=== PATIENT | male | born 1990 | race Caucasian/White ===

== ENCOUNTER 2018-09-07 15:51 | Inpatient (IN) | payer OTHER ==
[~2018-09-07] VITALS: Ht 182.9 cm; Wt 86.5 kg
[2018-09-07 16:29] LABS: Hematocrit 44.5 % (41.0-53.0); Hemoglobin 15.6 g/dL (13.5-17.5); Mean Corpuscular Hemoglobin 30.5 pg (28.0-32.0); Mean Corpuscular Hgb Conc. 35.1 g/dL (32.0-36.0); Mean Corpuscular Volume 86.9 fL (80.0-100.0); Platelet Count (auto) 130 10^3/uL (140-450); Red Blood Cells 5.12 10^6/uL (4.5-5.90); Red Cell Distribution Width 12.7 % (11.8-14.3); White Blood Cell 6.5 10^3/uL (4.4-10.8)
[2018-09-07 16:33] LABS: Basophils % (manual) 0 (0.0-2.0); Blast Cells 0; Eosinophils % (manual) 0 (0-7); Metamyelocytes % 0; Myelocytes % 0; Promyelocytes % 0; Reactive Lymphocytes 0
[2018-09-07 16:46] LABS: Albumin 3.9 g/dL (3.4-5.0); Calcium 8.5 mg/dL (8.5-10.1); Potassium 3.4 mmol/L (3.5-5.1)
[2018-09-07 16:49] LABS: BUN/Creatinine Ratio 12.6; Bilirubin, Total 0.5 mg/dL (0.2-1.0); Total Protein 7.9 g/dL (6.4-8.2)
[2018-09-07 17:06] LABS: Urine Bacteria NONE SEEN /hpf (None Seen); Urine Blood TRACE /uL (Negative); Urine Mucus FEW (None Seen); Urine Specific Gravity 1.028 (1.001-1.035); Urine WBC 2 /hpf (0 - 3)
[2018-09-07 17:34] LABS: Band Neutrophils % (manual) 5; Lymphocytes % (manual) 14 (10.0-50.0); Monocytes % (manual) 13 (0-12)
[2018-09-07] MEDS ORDERED: ONDANSETRON HCL 4 MG/2 ML VIAL ONE (18:30)
[2018-09-07] MEDS ORDERED: ONDANSETRON HCL 4 MG/2 ML VIAL IV ONE ×2 (18:45→20:00)
[2018-09-07] MEDS ORDERED: SODIUM CHLORIDE 0.9% 500 ML IV ONE (18:45)
[2018-09-07] MEDS ORDERED: CEFTRIAXONE SODIUM 2 GM in D5W 5% 50 ML IV ONE (20:00)
[2018-09-07] MEDS ORDERED: SODIUM CHLORIDE 0.9% 1,000 ML IV ONE (20:00)
[2018-09-07] MEDS ORDERED: MORPHINE SULFATE 4 MG/ML SYR/VIAL IV ONE (20:00)
[2018-09-07] MEDS ORDERED: ACETAMINOPHEN 500 MG TAB PO ONE (20:00)
[2018-09-07] MEDS ORDERED: cefTRIAXone 1GM/50ML D5W 100 ML IV ONE (20:12)
[2018-09-07 20:23] LABS: CSF White Blood Cells 2 CUMM (0-5)
[2018-09-08] MEDS ORDERED: IBUPROFEN 800 MG TAB PO ONE (02:00)
[2018-09-08] MEDS ORDERED: MORPHINE SULFATE 4 MG/ML SYR/VIAL IV PRN (05:30)
[2018-09-08] MEDS ORDERED: SODIUM CHLORIDE 0.9% 1,000 ML IV SCH ×2 (05:45→06:00)
[2018-09-08] MEDS ORDERED: POTASSIUM CHL 20 Meq TABLET PO ONE (06:00)
[2018-09-08] MEDS: OSELTAMIVIR 75 MG CAP PO SCH ×2 (06:04→21:59)
[2018-09-08 06:54] LABS: BUN/Creatinine Ratio 14.3; Calcium 7.4 mg/dL (8.5-10.1); Potassium 3.7 mmol/L (3.5-5.1)
[2018-09-08 07:12] LABS: Hematocrit 38.8 % (41.0-53.0); Hemoglobin 13.4 g/dL (13.5-17.5); Mean Corpuscular Hemoglobin 30.2 pg (28.0-32.0); Mean Corpuscular Hgb Conc. 34.5 g/dL (32.0-36.0); Mean Corpuscular Volume 87.3 fL (80.0-100.0); Platelet Count (auto) 102 10^3/uL (140-450); Red Blood Cells 4.44 10^6/uL (4.5-5.90); Red Cell Distribution Width 12.7 % (11.8-14.3); White Blood Cell 3.9 10^3/uL (4.4-10.8)
[2018-09-08 07:21] LABS: Basophils % (manual) 0 (0.0-2.0); Blast Cells 0; Eosinophils % (manual) 0 (0-7); Metamyelocytes % 0; Myelocytes % 0; Promyelocytes % 0; Reactive Lymphocytes 0
[2018-09-08 08:45] LABS: Band Neutrophils % (manual) 5; Lymphocytes % (manual) 25 (10.0-50.0); Monocytes % (manual) 12 (0-12)
--- NOTE | 2018-09-08 09:30 | NUR ---
MS admit from ER [facility] admitted to tele/MS after SBAR received. Patient oriented to Isela Velazquez, primary RN, room 283. A/O x4 mild shivering, no SOB or distress associated. Droplet precautions initiated and unit policies regarding patient care and visiting hours were explained, verbalized understanding. Patient weighed by bed scale and encouraged to call if they need something. All questions and concerns addressed, patient verbalized understanding.
[2018-09-08] MEDS: ACETAMINOPHEN 325 MG TAB PO PRN ×2 (10:06→21:59)
[2018-09-08] MEDS: ONDANSETRON HCL 4 MG/2 ML VIAL IV PRN (10:07)
--- NOTE | 2018-09-08 10:12 | NUR ---
TEMPERATURE Elevated temperature of 102F assessed, provided patient with prescribed antipyretic and initiated cooling measures. No distress or SOB at this time. Will continue to monitor q1hr and prn.
[2018-09-08 10:51] VITALS: BP 101/56
[2018-09-08] MEDS: SODIUM CHLORIDE 0.9% 1,000 ML IV SCH ×2 (12:42→19:01)
[2018-09-08] MEDS ORDERED: OSEL75CA11 PO (12:43)
[2018-09-08] MEDS ORDERED: IBUP800T24 PO (12:43)
[2018-09-08] MEDS ORDERED: PRO625LQ PO (12:43)
[2018-09-08] MEDS ORDERED: CETI10CA PO (12:43)
[2018-09-08] MEDS ORDERED: LEVO750T2 PO (12:43)
[2018-09-08 13:00] VITALS: BP 104/60
[2018-09-08] MEDS: HYDROcodone-ACET 5/325MG TAB PO PRN (15:20)
[2018-09-08 17:00] VITALS: BP 111/57
--- NOTE | 2018-09-08 19:55 | NUR ---
Opening Shift Note Assumed care of patient, awake and alert. Complaints of 9/10 generalized pain and headache. States [place] wasn't as effective as morphine given in ED. Morphine administered as per order. Patient agreed to alternate morphine and [place] for now. Instructed on POC and to call for assist PRN, will continue to monitor for changes Q1hr and PRN.
--- NOTE | 2018-09-08 20:00 | NUR ---
IV insertion IV access obtained, via clean sterile technique by inserting 22 gauge catheter at RIGHT HAND after 1 attempt(s). IV secured properly. No trauma to site. Patient tolerated well.
--- NOTE | 2018-09-08 22:01 | NUR ---
TEMP 103F TYLENOL ADMINISTERED. PATIENT SPONGED DOWN W/COLD WASH CLOTHS AND ICE PACKS APPLIED IN THE AXILLARY. WILL MONITOR.
[2018-09-08 22:16] VITALS: BP 112/55
[2018-09-09] MEDS: SODIUM CHLORIDE 0.9% 1,000 ML IV SCH ×4 (00:24→21:13)
[2018-09-09] MEDS: ACETAMINOPHEN 325 MG TAB PO PRN ×3 (04:00→16:51)
--- NOTE | 2018-09-09 04:18 | NUR ---
TEMP 102.7F TEMP DID COME DOWN TO 100.3 BUT EDGARD AGAIN 102.7F. TYLENOL ADMINISTERED; RUBBED DOWN W/COLD WASH CLOTHS, THEN APPLIED TO HEAD AND NECK; AND ICE PACKS APPLIED TO AXILLARIES AND BACK OF NECK. WILL MONITOR.
[2018-09-09] MEDS: ONDANSETRON HCL 4 MG/2 ML VIAL IV PRN (04:32)
--- NOTE | 2018-09-09 04:38 | NUR ---
ZOFRAN ADMINISTERED FOR NAUSEA.
[2018-09-09 05:00] VITALS: BP 110/57
--- NOTE | 2018-09-09 07:05 | NUR ---
SHIFT END PATIENT RESTING IN BED COMFORTABLY. TEMP NOW 98.1. HAND OFF TO DAY RN.
--- NOTE | 2018-09-09 08:00 | NUR ---
Opening Shift Note Assumed care of patient, awake, alert and oriented X4. No S/S of distress/SOB or pain. IV to right hand, 22 gauge, patent and infusing 00.9% NS @ 150 ml/hr. Patient remains in droplet isolation for positive Influenza A. Instructed on POC and to call for assist PRN, verbalized understanding. Bed locked, in lowest position, call light within reach, will continue to monitor for changes Q1hr and PRN.
[2018-09-09] MEDS: OSELTAMIVIR 75 MG CAP PO SCH ×2 (09:46→21:13)
[2018-09-09] MEDS: HYDROcodone-ACET 5/325MG TAB PO PRN ×2 (09:47→18:50)
--- NOTE | 2018-09-09 12:15 | NUR ---
ROUNDS Dr Granados at bedside for rounds, new orders received and followed through. Patient updated on plan of care, verbalized understanding.
[2018-09-09] MEDS: KETOROLAC TROMETH 30 MG/ML 1ML VIAL IV PRN ×2 (12:57→18:50)
[2018-09-09 13:00] VITALS: BP 87/43
[2018-09-09 18:36] VITALS: BP 117/56
--- NOTE | 2018-09-09 19:14 | NUR ---
Care endorsed to JET Jorgensen, night nurse.
[2018-09-09 22:00] VITALS: BP 107/58
[2018-09-10] MEDS: HYDROcodone-ACET 5/325MG TAB PO PRN ×2 (00:59→08:20)
[2018-09-10] MEDS: SODIUM CHLORIDE 0.9% 1,000 ML IV SCH ×4 (03:00→23:45)
[2018-09-10 05:23] VITALS: BP 121/69
[2018-09-10 06:35] LABS: Basophils # (auto) 0 uL; Basophils % (auto) 0.3 % (0.0-2.0); Eosinophils # (auto) 0 uL; Lymphocytes # (auto) 1.1 uL; Lymphocytes % (auto) 17.1 % (10.0-50.0); Mean Corpuscular Hemoglobin 30.3 pg (28.0-32.0); Mean Corpuscular Hgb Conc. 35.2 g/dL (32.0-36.0); Mean Corpuscular Volume 86.2 fL (80.0-100.0); Monocytes # (auto) 0.7 uL; Monocytes % (auto) 10.9 % (0.0-12.0); Neutrophils # (auto) 4.4 uL; Neutrophils % (auto) 71.7 % (37.0-80.0); Platelet Count (auto) 87 10^3/uL (140-450); Red Blood Cells 4.29 10^6/uL (4.5-5.90); Red Cell Distribution Width 12.7 % (11.8-14.3); White Blood Cell 6.1 10^3/uL (4.4-10.8)
[2018-09-10] MEDS: ACETAMINOPHEN 325 MG TAB PO PRN ×2 (06:58→15:39)
--- NOTE | 2018-09-10 07:00 | NUR ---
TYLENOL ADMINISTERED FOR 103.2F TEMP TEMPERATURE SPIKED TO 103F X2 OVERNIGHT AND ABLE TO SUCCESSFULLY REDUCE IT TO 100 W/COOLING MEASURES INCLUDING SHOWER X2 AND ICE PACKS TO BL AXILLARIES, NECK AND COLD WASH CLOTHS TO HEAD. PATIENT IN NO DISTRESS BUT MILD TO MODERATE PAIN. TOLERATING INCREASED ACTIVITY LEVELS WELL. OVERALL DISPOSITION IS IMPROVED. CARE ENDORSED TO DAY JET MCNEAL.
[2018-09-10 07:01] LABS: Albumin 2.6 g/dL (3.4-5.0); Calcium 7.1 mg/dL (8.5-10.1); Magnesium 1.9 mg/dL (1.6-2.6); Potassium 3.2 mmol/L (3.5-5.1)
[2018-09-10 07:03] LABS: BUN/Creatinine Ratio 9.3
[2018-09-10 07:06] LABS: Total Protein 6.1 g/dL (6.4-8.2)
[2018-09-10 07:26] LABS: Bilirubin, Total 0.5 mg/dL (0.2-1.0)
--- NOTE | 2018-09-10 08:00 | NUR ---
Opening Shift Note Assumed care of patient, awake, alert and oriented X4. No S/S of distress/SOB, complains of pain to head, 6/10, Domínguez Dodson scale. Temp 103.2 F orally, administered Coats and Toradol as ordered. Cooling measures remain in place. IV to right hand, 22 gauge, patent and infusing 0.9% NS @ 150 ml/hr. Instructed on POC and to call for assist PRN, verbalized understanding. Patient remains in droplet isolation for positive Influenza A. Bed locked, in lowest position, call light within reach, will continue to monitor for changes Q1hr and PRN.
[2018-09-10 08:09] VITALS: BP 133/67
[2018-09-10] MEDS: KETOROLAC TROMETH 30 MG/ML 1ML VIAL IV PRN ×3 (08:20→21:45)
[2018-09-10] MEDS: PANTOPRAZOLE 40 MG TAB PO SCH (09:55)
[2018-09-10] MEDS: OSELTAMIVIR 75 MG CAP PO SCH ×2 (09:55→21:45)
[2018-09-10 11:50] VITALS: BP 115/53
--- NOTE | 2018-09-10 13:40 | NUR ---
ROUNDS Dr Barnes at bedside for rounds, new orders received and followed through. Patient updated on plan of care, verbalized understanding. Patient remains in droplet isolation for Influenza B.
[2018-09-10] MEDS ORDERED: PIPERACILLIN-TAZOB 3.375GM 100 ML IV ONE (13:45)
[2018-09-10] MEDS ORDERED: POTASSIUM CHL 20 Meq TABLET PO ONE (13:45)
[2018-09-10] MEDS ORDERED: MAGNESIUM SULFATE 1GM/100ML 100 ML IV ONE (13:45)
[2018-09-10] MEDS ORDERED: HEPARIN SODIUM (PORCINE) 5000 UNITS/ML 1ML VIAL SC SCH (14:00)
[2018-09-10 16:29] LABS: Urine Bacteria NONE SEEN /hpf (None Seen); Urine Blood 1+ /uL (Negative); Urine Mucus FEW (None Seen); Urine Specific Gravity 1.014 (1.001-1.035); Urine WBC 8 /hpf (0 - 3)
[2018-09-10 16:43] LABS: Alcohol, Urine < 3.0 mg/dL (0-5); Amphetamine Screen, Urine NEGATIVE (NEGATIVE); Barbiturate Scree,Urine NEGATIVE (NEGATIVE); Benzodiazephine Screen, Urine NEGATIVE (NEGATIVE); Cannabinoid Screen, Urine NEGATIVE (NEGATIVE); Cocaine Screen, Urine NEGATIVE (NEGATIVE); Opiate Scree,Urine POSITIVE (NEGATIVE); Phencyclidine Screen, Urine NEGATIVE (NEGATIVE)
[2018-09-10 16:58] VITALS: BP 126/62
--- NOTE | 2018-09-10 19:37 | NUR ---
Care endorsed to JET Art, night nurse.
[2018-09-10 22:00] VITALS: BP 120/54
[2018-09-11] MEDS: ACETAMINOPHEN 325 MG TAB PO PRN ×3 (01:47→16:20)
[2018-09-11 04:57] LABS: Basophils # (auto) 0 uL; Basophils % (auto) 0.3 % (0.0-2.0); Eosinophils # (auto) 0 uL; Hematocrit 34.7 % (41.0-53.0); Hemoglobin 11.8 g/dL (13.5-17.5); Lymphocytes % (auto) 18.6 % (10.0-50.0); Mean Corpuscular Hemoglobin 29.9 pg (28.0-32.0); Mean Corpuscular Hgb Conc. 33.9 g/dL (32.0-36.0); Mean Corpuscular Volume 88.1 fL (80.0-100.0); Monocytes # (auto) 0.7 uL; Monocytes % (auto) 11.8 % (0.0-12.0); Neutrophils # (auto) 3.9 uL; Neutrophils % (auto) 69.3 % (37.0-80.0); Nucleated Red Blood Cells % 0.1 %; Platelet Count (auto) 86 10^3/uL (140-450); Red Blood Cells 3.94 10^6/uL (4.5-5.90); Red Cell Distribution Width 13.1 % (11.8-14.3); White Blood Cell 5.7 10^3/uL (4.4-10.8)
[2018-09-11 05:00] VITALS: BP 102/63
[2018-09-11 05:13] LABS: BUN/Creatinine Ratio 10.8; Calcium 7.2 mg/dL (8.5-10.1); Magnesium 2.3 mg/dL (1.6-2.6); Potassium 3.9 mmol/L (3.5-5.1)
[2018-09-11] MEDS: KETOROLAC TROMETH 30 MG/ML 1ML VIAL IV PRN ×2 (06:09→22:04)
[2018-09-11] MEDS: SODIUM CHLORIDE 0.9% 1,000 ML IV SCH ×2 (06:09→23:59)
[2018-09-11] MEDS: PIPERACILLIN-TAZOB 3.375GM 100 ML IV SCH ×4 (06:20→23:58)
[2018-09-11 08:00] VITALS: BP 111/64
--- NOTE | 2018-09-11 08:00 | NUR ---
OPENING SHIFT NOTE: Received report from NOC RNKaelyn. Assumed care of patient. Patient sitting up in bed eating breakfast and denies pain. Bed in lowest position, rails x2 up and call light within reach. Patient voicing concerns about staff not answering call light in a timely manner, instructed patient to call this RN's portable phone at anytime if call light isn't being answered fast enough. Updated on plan of care. Will continue to monitor.
[2018-09-11] MEDS: OSELTAMIVIR 75 MG CAP PO SCH ×2 (10:24→22:02)
[2018-09-11] MEDS: PANTOPRAZOLE 40 MG TAB PO SCH (10:24)
--- NOTE | 2018-09-11 10:25 | NUR ---
TEMP/FEVER: Patient c/o chills and is visibly shaking. Axillary temperature taken 101.9. Medicated with Tylenol as ordered. Dr Barnes made aware.
--- NOTE | 2018-09-11 10:25 | NUR ---
MD: Dr Barnes at bedside. Orders given.
[2018-09-11] MEDS ORDERED: guaiFENesin-DM 100/10mg/5ml SYR PO PRN (10:45)
[2018-09-11 11:07] LABS: Cryptococcus Antigen CSF Negative (Negative)
[2018-09-11] MEDS ORDERED: VANCOMYCIN PER PHARMACY 0 MG IV SCH (11:15)
[2018-09-11] MEDS ORDERED: ALBUTEROL SULF 2.5 MG/0.5ML(0.5%) NEB SOLN NEB PRN (11:15)
[2018-09-11] MEDS ORDERED: MORPHINE SULFATE 4 MG/ML SYR/VIAL IV PRN (11:15)
[2018-09-11] MEDS: ONDANSETRON HCL 4 MG/2 ML VIAL IV PRN (11:26)
[2018-09-11] MEDS: IPRATROPIUM BROM 0.5 MG/2.5ML INH SOL NEB SCH ×3 (11:47→18:44)
[2018-09-11] MEDS: ALBUTEROL SULF 2.5 MG/0.5ML(0.5%) NEB SOLN NEB SCH ×3 (11:47→18:44)
[2018-09-11 12:00] VITALS: BP 112/62
--- NOTE | 2018-09-11 13:17 | NUR ---
NUTRITION ASSESSMENT NOTES Please refer to link notes of nutrition screen form filed under the intervention section of the plan of care for further details. Est. Needs: 1850 kcal to 2300 kcal (20-25 kcal/kgBW), 76 gms to 92 gms pro (0.8-1.0 gms/kgBW). Will continue to monitor pertinent labs and reassess nutrient needs prn Thank you. Addendum: 09/11/18 at [address] Amended: Links added.
[2018-09-11] MEDS: VANCOMYCIN 1,250 MG in D5W 5% 250 ML IV SCH ×2 (15:30→22:02)
[2018-09-11 17:00] VITALS: BP 117/67
[2018-09-11 17:42] VITALS: BP 117/67
--- NOTE | 2018-09-11 19:15 | NUR ---
Opening Shift Note Assumed care of patient, awake and alert. No S/S of distress/SOB or pain. Family at bedside. Instructed on POC and to call for assist PRN, will continue to monitor for changes Q1hr and PRN.
--- NOTE | 2018-09-11 19:39 | NUR ---
CLOSING SHIFT NOTE: Report given to NOC Kaelyn CHAUDHARY. Mother at bedside. Endorsed care of patient.
[2018-09-11 22:00] VITALS: BP 106/61
[2018-09-11] MEDS: FLUTICASONE PROP NASAL SPR 0.05 % (50MCG) 16GM EACHNOSTRI SCH (22:04)
[2018-09-12] MEDS: ACETAMINOPHEN 325 MG TAB PO PRN ×3 (00:09→18:41)
[2018-09-12] MEDS: KETOROLAC TROMETH 30 MG/ML 1ML VIAL IV PRN ×3 (04:25→21:55)
[2018-09-12 04:55] VITALS: BP 118/64
[2018-09-12] MEDS: PIPERACILLIN-TAZOB 3.375GM 100 ML IV SCH ×2 (05:35→12:00)
[2018-09-12] MEDS: SODIUM CHLORIDE 0.9% 1,000 ML IV SCH ×2 (05:35→15:53)
[2018-09-12] MEDS: VANCOMYCIN 1,250 MG in D5W 5% 250 ML IV SCH (06:34)
[2018-09-12] MEDS: ALBUTEROL SULF 2.5 MG/0.5ML(0.5%) NEB SOLN NEB SCH ×5 (06:53→21:26)
[2018-09-12] MEDS: IPRATROPIUM BROM 0.5 MG/2.5ML INH SOL NEB SCH ×5 (06:53→21:26)
--- NOTE | 2018-09-12 07:00 | NUR ---
CARE ENDORSED TO SARANYA
[2018-09-12 09:15] VITALS: BP 122/73
[2018-09-12] MEDS: ONDANSETRON HCL 4 MG/2 ML VIAL IV PRN ×3 (09:51→18:41)
[2018-09-12] MEDS: OSELTAMIVIR 75 MG CAP PO SCH ×2 (09:52→21:47)
[2018-09-12] MEDS: PANTOPRAZOLE 40 MG TAB PO SCH (09:52)
[2018-09-12] MEDS: FLUTICASONE PROP NASAL SPR 0.05 % (50MCG) 16GM EACHNOSTRI SCH ×2 (09:53→21:47)
[2018-09-12 11:21] LABS: Basophils # (auto) 0 uL; Basophils % (auto) 0.3 % (0.0-2.0); Eosinophils # (auto) 0 uL; Hematocrit 36.5 % (41.0-53.0); Hemoglobin 12.6 g/dL (13.5-17.5); Lymphocytes # (auto) 0.5 uL; Lymphocytes % (auto) 17.1 % (10.0-50.0); Mean Corpuscular Hemoglobin 30.1 pg (28.0-32.0); Mean Corpuscular Hgb Conc. 34.5 g/dL (32.0-36.0); Mean Corpuscular Volume 87.4 fL (80.0-100.0); Monocytes # (auto) 0.5 uL; Monocytes % (auto) 16.9 % (0.0-12.0); Neutrophils # (auto) 1.9 uL; Neutrophils % (auto) 65.7 % (37.0-80.0); Nucleated Red Blood Cells % 0.3 %; Platelet Count (auto) 152 10^3/uL (140-450); Red Blood Cells 4.17 10^6/uL (4.5-5.90); Red Cell Distribution Width 13.4 % (11.8-14.3); White Blood Cell 2.8 10^3/uL (4.4-10.8)
[2018-09-12 13:02] VITALS: BP 107/41
--- NOTE | 2018-09-12 14:56 | NUR ---
XRAY Patient going off unit for xray via wheelchair.
[2018-09-12] MEDS: AZITHROMYCIN 500MG/ 250ML 250 ML IV SCH (15:30)
[2018-09-12] MEDS: CEFTRIAXONE SODIUM 2 GM in D5W 5% 50 ML IV SCH (15:52)
[2018-09-12 17:00] VITALS: BP 108/61
--- NOTE | 2018-09-12 19:20 | NUR ---
OPENING SHIFT NOTE ASSUMED CARE OF PATIENT FROM DAY SHIFT RN SARANYA. PATIENT IS AWAKE, ALERT, AND SITTING UP IN BED RELAXED WITH EVEN AND UNLABORED RESPIRATIONS. FAMILY IS AT BEDSIDE. BED IS LOW, LOCKED, CALL LIGHT IN REACH, SIDE RAILS UP X2 AND NONSKID SOCKS ON. INSTRUCTED ON POC AND TO CALL FOR ASSIST PRN. WILL CONTINUE TO MONITOR.
--- NOTE | 2018-09-12 20:25 | NUR ---
INCENTIVE SPIROMETER I.S. GIVEN TO PATIENT AND PATIENT EDUCATED ON USE AND PURPOSE. PATIENT RETURNED DEMONSTRATION. WILL CONTINUE TO MONITOR
[2018-09-12 21:00] VITALS: BP 117/63
[2018-09-13] MEDS: ACETAMINOPHEN 325 MG TAB PO PRN ×3 (01:49→20:18)
[2018-09-13] MEDS: ONDANSETRON HCL 4 MG/2 ML VIAL IV PRN ×4 (01:49→20:18)
[2018-09-13] MEDS: SODIUM CHLORIDE 0.9% 1,000 ML IV SCH ×3 (01:50→22:06)
--- NOTE | 2018-09-13 02:41 | NUR ---
NOSE BLEED PATIENT HAD A NOSE BLEED THAT HALF SATURATED A WASH CLOTH. PATIENT STATED THAT HE HAS HAD THEM SINCE HE WAS A CHILD. ICE AND EDUCATION GIVEN. OXYGEN IS HUMIDIFIED. PATIENT IS RECEIVING NASAL SUDAFED. WILL CONTINUE TO MONITOR.
[2018-09-13 05:00] VITALS: BP 131/78
[2018-09-13] MEDS: ALBUTEROL SULF 2.5 MG/0.5ML(0.5%) NEB SOLN NEB SCH ×4 (06:00→19:08)
[2018-09-13] MEDS: IPRATROPIUM BROM 0.5 MG/2.5ML INH SOL NEB SCH ×4 (06:00→19:08)
--- NOTE | 2018-09-13 06:30 | NUR ---
PT REFUSED 0600 SCHEDULED BREATHING TX. PT IS ON ROOM AIR, SPO2 91%, HR 73, RR 18. PT HAS NOSE BLEED AND IS ALSO VOMITING. NO S/S OF RESPIRATORY DISTRESS. PT AWARE TO HAVE RT PAGED IF SOB OCCURS OR HE CHANGES HIS MIND. WILL CONTINUE TO MONITOR.
--- NOTE | 2018-09-13 07:28 | NUR ---
CLOSING SHIFT NOTE TRANSFERRED CARE TO DAY SHIFT RN. PATIENT IS AWAKE, ALERT, AND SITTING UP IN BED RELAXED WITH EVEN AND UNLABORED RESPIRATIONS. BED IS LOW, LOCKED, CALL LIGHT IN REACH, SIDE RAILS UP X2.
[2018-09-13 08:38] VITALS: BP 143/77
[2018-09-13] MEDS: KETOROLAC TROMETH 30 MG/ML 1ML VIAL IV PRN (08:41)
[2018-09-13] MEDS: CEFTRIAXONE SODIUM 2 GM in D5W 5% 50 ML IV SCH (09:53)
[2018-09-13] MEDS: PANTOPRAZOLE 40 MG TAB PO SCH (09:54)
[2018-09-13] MEDS: FLUTICASONE PROP NASAL SPR 0.05 % (50MCG) 16GM EACHNOSTRI SCH ×2 (09:54→22:06)
[2018-09-13] MEDS: AZITHROMYCIN 500MG/ 250ML 250 ML IV SCH (11:08)
[2018-09-13 13:00] VITALS: BP 122/66
--- NOTE | 2018-09-13 13:13 | NUR ---
IV removal IV DC'd with clean sterile technique, catheter fully intact. Pressure dressing applied to site. Patient tolerated well. NOTE: Patient complains of pain to IV site. Site appears moist.
--- NOTE | 2018-09-13 13:15 | NUR ---
IV attempt Unable to get IV insertion after two attempts. paper final inspector notified and will attempt to insert IV.
--- NOTE | 2018-09-13 14:49 | NUR ---
IV insertion IV access obtained, via clean sterile technique by inserting 22 gauge catheter at R FA after 1 attempt. IV secured properly. No trauma to site. Patient tolerated well.
--- NOTE | 2018-09-13 15:00 | NUR ---
NAUSEA Patient having nausea and vomiting, asking for medications. Dr Fermin at nursing station made aware of patient continuos n/v episodes. MD states he will see patient.
--- NOTE | 2018-09-13 15:25 | NUR ---
ROUNDING Dr Fermin rounding on patient. Patients mom at bedside. MD will order GI consult.
[2018-09-13 17:11] VITALS: BP 129/71
--- NOTE | 2018-09-13 19:15 | NUR ---
OPENING SHIFT NOTE ASSUMED CARE OF PATIENT FROM DAY SHIFT RN SARANYA. PATIENT IS AWAKE, ALERT, AND SITTING UP IN BED RELAXED WITH EVEN AND UNLABORED RESPIRATIONS. MOM IS AT BEDSIDE. BED IS LOW, LOCKED, CALL LIGHT IN REACH, SIDE RAILS UP X2 AND NONSKID SOCKS ON. INSTRUCTED ON POC AND TO CALL FOR ASSIST PRN. WILL CONTINUE TO MONITOR.
[2018-09-13] MEDS ORDERED: LORazepam 0.5 MG TAB PO PRN (19:45)
--- NOTE | 2018-09-13 20:05 | NUR ---
N/V AND FEVER PATIENT SHAKY WITH N/V. TEMP 103.0. TYLENOL AND ZOFRAN GIVEN. COOLING MEASURES IMPLEMENTED. DINNER UNEATEN AT BEDSIDE. WILL CONTINUE TO MONITOR.
[2018-09-13 22:00] VITALS: BP 128/69
[2018-09-13] MEDS: PANTOPRAZOLE 40 MG/10 ML VIAL IV SCH (22:05)
[2018-09-14] MEDS: ONDANSETRON HCL 4 MG/2 ML VIAL IV PRN ×3 (00:35→11:21)
[2018-09-14] MEDS: ACETAMINOPHEN 325 MG TAB PO PRN ×3 (04:45→22:00)
[2018-09-14 05:00] VITALS: BP 132/75
[2018-09-14] MEDS: ALBUTEROL SULF 2.5 MG/0.5ML(0.5%) NEB SOLN NEB SCH ×4 (06:18→18:59)
[2018-09-14] MEDS: IPRATROPIUM BROM 0.5 MG/2.5ML INH SOL NEB SCH ×4 (06:18→18:58)
--- NOTE | 2018-09-14 07:45 | NUR ---
Opening Shift Note Assumed care of patient, awake and alert. No S/S of distress/SOB. Patient continues to have nausea and pain at an acceptable level at this time. Instructed on POC and to call for assist PRN, will continue to monitor for changes Q1hr and PRN.
[2018-09-14 09:00] VITALS: BP 139/77
[2018-09-14] MEDS: PANTOPRAZOLE 40 MG/10 ML VIAL IV SCH ×2 (10:43→22:00)
[2018-09-14] MEDS: FLUTICASONE PROP NASAL SPR 0.05 % (50MCG) 16GM EACHNOSTRI SCH ×2 (10:43→22:00)
[2018-09-14] MEDS: CEFTRIAXONE SODIUM 2 GM in D5W 5% 50 ML IV SCH (10:43)
[2018-09-14] MEDS: SODIUM CHLORIDE 0.9% 1,000 ML IV SCH ×2 (10:43→18:40)
--- NOTE | 2018-09-14 11:25 | NUR ---
MD BILL Barnes roundyamel with mom and RN at bedside updated on all tests and lab results. Discussed symptoms. Stool cultures will be ordered and abd CT with contrast. Patient verbalized understanding.
[2018-09-14 13:00] VITALS: BP 120/67
[2018-09-14] MEDS ORDERED: IOHEXOL 300 MG/ML 100ML BOTTLE IJ ONE (13:08)
[2018-09-14] MEDS ORDERED: PROMETHAZINE HCL 25 MG/ML 1ML IV PRN (13:45)
[2018-09-14] MEDS: AZITHROMYCIN 500MG/ 250ML 250 ML IV SCH (14:08)
[2018-09-14 15:10] LABS: Albumin 2.5 g/dL (3.4-5.0); Calcium 7.7 mg/dL (8.5-10.1); Potassium 3.8 mmol/L (3.5-5.1)
[2018-09-14 15:12] LABS: BUN/Creatinine Ratio 9.8
[2018-09-14 15:14] LABS: Bilirubin, Total 0.4 mg/dL (0.2-1.0); Total Protein 6.7 g/dL (6.4-8.2)
[2018-09-14 15:24] LABS: Hematocrit 38.9 % (41.0-53.0); Mean Corpuscular Hemoglobin 29.6 pg (28.0-32.0); Mean Corpuscular Hgb Conc. 33.5 g/dL (32.0-36.0); Mean Corpuscular Volume 88.4 fL (80.0-100.0); Platelet Count (auto) 254 10^3/uL (140-450); Red Blood Cells 4.39 10^6/uL (4.5-5.90); Red Cell Distribution Width 13.1 % (11.8-14.3); White Blood Cell 3.5 10^3/uL (4.4-10.8)
[2018-09-14 15:36] LABS: Band Neutrophils % (manual) 0; Basophils % (manual) 0 (0.0-2.0); Blast Cells 0; Metamyelocytes % 0; Myelocytes % 0; Promyelocytes % 0; Reactive Lymphocytes 0
--- NOTE | 2018-09-14 16:00 | NUR ---
CT/IV Patient off unit for CT. IV started to left AC 20G by radiology.
--- NOTE | 2018-09-14 16:15 | NUR ---
Return to unit Patient back from CT. Patient and patients mom asking about patients food mom states "he needs to eat something". Educated on risks and need for NPO r/t CT test. Patient also complaining about food options and lunch served. Phone call placed to kitchen so patient could speak with staff to discuss dinner options.
[2018-09-14 17:05] VITALS: BP 139/72
[2018-09-14] MEDS: VANCOMYCIN HCL 125MG/5ML ORAL SOL PO SCH ×2 (18:00→22:00)
--- NOTE | 2018-09-14 18:00 | NUR ---
MED HELD Vancomycin held at this time r/t order "for c.diff". Cultures pending.
[2018-09-14 18:14] LABS: Eosinophils % (manual) 1 (0-7); Lymphocytes % (manual) 25 (10.0-50.0); Monocytes % (manual) 24 (0-12)
--- NOTE | 2018-09-14 18:39 | NUR ---
NEURO CONSULT Dr Vasquez rounded on patient for neuro consult.
--- NOTE | 2018-09-14 19:25 | NUR ---
Opening Shift Note Received report from Maris CHAUDHARY. Assumed care of patient, awake and alert, mother at bedside. No S/S of distress/SOB or pain. Instructed on POC and to call for assist PRN, will continue to monitor for changes Q1hr and PRN.
[2018-09-14] MEDS: HYDROcodone-ACET 5/325MG TAB PO PRN (21:02)
[2018-09-14 22:00] VITALS: BP 125/66
--- NOTE | 2018-09-14 22:00 | NUR ---
MED HELD Vancomycin held at this time r/t order "for c.diff". Cultures still pending.
[2018-09-15] VITALS (8 sets, daily range): BP systolic 109–127; BP diastolic 58–75
[2018-09-15] MEDS: SODIUM CHLORIDE 0.9% 1,000 ML IV SCH ×2 (04:08→13:45)
[2018-09-15] MEDS: VANCOMYCIN HCL 125MG/5ML ORAL SOL PO SCH ×4 (06:00→22:00)
[2018-09-15 06:19] LABS: Hematocrit 37.9 % (41.0-53.0); Mean Corpuscular Hemoglobin 30.1 pg (28.0-32.0); Mean Corpuscular Hgb Conc. 34.4 g/dL (32.0-36.0); Mean Corpuscular Volume 87.6 fL (80.0-100.0); Platelet Count (auto) 279 10^3/uL (140-450); Red Blood Cells 4.33 10^6/uL (4.5-5.90); Red Cell Distribution Width 13.2 % (11.8-14.3); White Blood Cell 4.1 10^3/uL (4.4-10.8)
[2018-09-15 06:41] LABS: Albumin 2.5 g/dL (3.4-5.0); Calcium 7.9 mg/dL (8.5-10.1); Potassium 3.7 mmol/L (3.5-5.1)
[2018-09-15 06:43] LABS: BUN/Creatinine Ratio 15.2
[2018-09-15 06:47] LABS: Bilirubin, Total 0.5 mg/dL (0.2-1.0); Total Protein 6.7 g/dL (6.4-8.2)
[2018-09-15] MEDS: IPRATROPIUM BROM 0.5 MG/2.5ML INH SOL NEB SCH ×4 (06:55→18:40)
[2018-09-15] MEDS: ALBUTEROL SULF 2.5 MG/0.5ML(0.5%) NEB SOLN NEB SCH ×4 (06:55→18:40)
--- NOTE | 2018-09-15 07:15 | NUR ---
Patient awake at this time, still with moderate body pain, no fever and nausea at the moment. Endorsed care to Anum CHAUDHARY.
[2018-09-15 07:53] LABS: Basophils % (manual) 0 (0.0-2.0); Blast Cells 0; Metamyelocytes % 0; Myelocytes % 0; Promyelocytes % 0; Reactive Lymphocytes 0
[2018-09-15 08:20] LABS: Band Neutrophils % (manual) 2; Eosinophils % (manual) 2 (0-7); Lymphocytes % (manual) 24 (10.0-50.0); Monocytes % (manual) 17 (0-12)
[2018-09-15] MEDS: AZITHROMYCIN 500MG/ 250ML 250 ML IV SCH (10:33)
[2018-09-15] MEDS: CEFTRIAXONE SODIUM 2 GM in D5W 5% 50 ML IV SCH (10:33)
[2018-09-15] MEDS: FLUTICASONE PROP NASAL SPR 0.05 % (50MCG) 16GM EACHNOSTRI SCH ×2 (10:33→22:15)
[2018-09-15] MEDS: PANTOPRAZOLE 40 MG/10 ML VIAL IV SCH ×2 (10:33→22:15)
--- NOTE | 2018-09-15 14:45 | NUR ---
Nutrition Follow-up Notes Wt.: 87.0 kg as of yesterday. Pt's asleep in isolation room, no signs of distress noted earlier, currently on Clear Liquid diet with fair PO intake aeb 60% ave. consumed meals (x5) in last 2.5 days d/t pt refused, per nursing. Noted pt's for active Neurology and GI consults. Est. Needs: 1850 kcal to 2300 kcal (20-25 kcal/kgBW), 76 gms to 92 gms pro (0.8-1.0 gms/kgBW). Will continue to monitor pertinent labs and reassess nutrient needs prn Labs: Ca 7.9 L, Cr 0.66 L, AST 47 H, ALP 78 L, Alb 2.5 L Skin: Prosper scale 20, low risk, skin intact per per publicity agent. GI: Pt had 4x BM yesterday per publicity agent. PES: Altered nutrition related lab values r/t current/chronic medical condition aeb elev. LFTs, hypocalcemia and mod hypoalbuminemia Will continue to monitor PO intake, skin status, pertinent labs and weight trend. F/u in to days. Rec.: 1.) Advance gradually oral diet (Soft Low Fat) when medically appropriate. 2.) If still on Clear Liquid diet with If Albumin level continues trending down, consider Ensure Clear 1 carton TID with Prostat 1 pkt BID. 3.) Continue close supervision with meals. 4.) Refer to RD for further nutrition educ. and weight monitoring upon discharge. 5.) Continue current plan of care.
[2018-09-15] MEDS: DOXYCYCLINE 100MG/250ML 250 ML IV SCH (22:16)
[2018-09-15] MEDS: HYDROcodone-ACET 5/325MG TAB PO PRN (22:27)
[2018-09-16] MEDS: SODIUM CHLORIDE 0.9% 1,000 ML IV SCH ×3 (00:10→19:45)
[2018-09-16 05:00] VITALS: BP 122/77
[2018-09-16] MEDS: VANCOMYCIN HCL 125MG/5ML ORAL SOL PO SCH ×2 (05:55→10:42)
--- NOTE | 2018-09-16 07:04 | NUR ---
Care endorsed to Anum CHAUDHARY.
[2018-09-16] MEDS: ALBUTEROL SULF 2.5 MG/0.5ML(0.5%) NEB SOLN NEB SCH ×4 (07:23→19:17)
[2018-09-16] MEDS: IPRATROPIUM BROM 0.5 MG/2.5ML INH SOL NEB SCH ×4 (07:23→19:17)
[2018-09-16 08:07] VITALS: BP 117/66
[2018-09-16 08:36] VITALS: BP 117/66
[2018-09-16] MEDS: FLUTICASONE PROP NASAL SPR 0.05 % (50MCG) 16GM EACHNOSTRI SCH ×2 (10:01→21:58)
[2018-09-16] MEDS: DOXYCYCLINE 100MG/250ML 250 ML IV SCH ×2 (10:01→21:58)
[2018-09-16] MEDS: PANTOPRAZOLE 40 MG/10 ML VIAL IV SCH ×2 (10:01→21:58)
[2018-09-16 12:38] VITALS: BP 112/67
--- NOTE | 2018-09-16 14:50 | NUR ---
RT NOTE: PT REFUSED TX AT THIS TIME STATING THEY DONT DO ANYTHING FOR HIM SO HE WOULD RATHER NOT TAKE THEM ANYMORE. NO SIGNS OF RESPIRATORY DISTRESS NOTED AT THIS TIME. LUNG SOUNDS CLEAR T/O. ON RA SPO2 93 HR 90 RR 18. PT AWARE TO HAVE RN PAGE FOR RT IF NEED FOR TX ARISES. WILL CONTINUE TO MONITOR.
[2018-09-16 16:52] VITALS: BP 112/67
[2018-09-16] MEDS: Ensure Enlive Chocolate 8oz Bottle PO SCH (18:20)
[2018-09-16] MEDS: HYDROcodone-ACET 5/325MG TAB PO PRN (21:57)
[2018-09-16 22:00] VITALS: BP 105/58
[2018-09-17 05:00] VITALS: BP 106/67
[2018-09-17] MEDS: SODIUM CHLORIDE 0.9% 1,000 ML IV SCH ×2 (05:45→09:49)
[2018-09-17 05:52] LABS: Hematocrit 40.3 % (41.0-53.0); Hemoglobin 13.4 g/dL (13.5-17.5); Mean Corpuscular Hemoglobin 29.4 pg (28.0-32.0); Mean Corpuscular Hgb Conc. 33.4 g/dL (32.0-36.0); Platelet Count (auto) 318 10^3/uL (140-450); Red Blood Cells 4.58 10^6/uL (4.5-5.90); Red Cell Distribution Width 13.3 % (11.8-14.3); White Blood Cell 4.2 10^3/uL (4.4-10.8)
[2018-09-17] MEDS: IPRATROPIUM BROM 0.5 MG/2.5ML INH SOL NEB SCH (06:00)
[2018-09-17] MEDS: ALBUTEROL SULF 2.5 MG/0.5ML(0.5%) NEB SOLN NEB SCH (06:00)
[2018-09-17 06:07] LABS: Basophils % (manual) 0 (0.0-2.0); Blast Cells 0; Metamyelocytes % 0; Myelocytes % 0; Promyelocytes % 0; Reactive Lymphocytes 0
[2018-09-17 06:09] LABS: Albumin 2.8 g/dL (3.4-5.0); Bilirubin, Direct 0.2 mg/dL (0-0.2)
[2018-09-17 06:12] LABS: Bilirubin, Total 0.6 mg/dL (0.2-1.0); Total Protein 7.2 g/dL (6.4-8.2)
[2018-09-17 07:31] LABS: Band Neutrophils % (manual) 2; Eosinophils % (manual) 4 (0-7); Lymphocytes % (manual) 24 (10.0-50.0); Monocytes % (manual) 17 (0-12)
[2018-09-17 08:00] VITALS: BP 108/64
--- NOTE | 2018-09-17 08:30 | NUR ---
Opening Shift Note Assumed care of patient, awake and alert. No S/S of distress/SOB or pain. Instructed on POC and to call for assist PRN, will continue to monitor for changes Q1hr and PRN.
[2018-09-17 08:44] VITALS: BP 108/64
[2018-09-17] MEDS: FLUTICASONE PROP NASAL SPR 0.05 % (50MCG) 16GM EACHNOSTRI SCH (09:48)
[2018-09-17] MEDS: PANTOPRAZOLE 40 MG/10 ML VIAL IV SCH (09:48)
[2018-09-17] MEDS: DOXYCYCLINE 100MG/250ML 250 ML IV SCH (09:48)
[2018-09-17] MEDS: Ensure Enlive Chocolate 8oz Bottle PO SCH ×2 (09:48→14:22)
--- NOTE | 2018-09-17 12:38 | NUR ---
Nutrition Follow-up Notes Wt.: 86.5 kg Pt's asleep in isolation room, no signs of distress noted earlier, now advanced to regular diet with ensure Enlive 1 carton tid with adequate PO of > 75% x 6 per RN doc Est. Needs: 1850 kcal to 2300 kcal (20-25 kcal/kgBW), 76 gms to 92 gms pro (0.8-1.0 gms/kgBW). Will continue to monitor pertinent labs and reassess nutrient needs prn Labs: CA 7.9 L, ALB 2.8 L. Skin: Prosper scale 21, low risk, skin intact per per instrument maintenance supervisor. GI: Pt had 2 BM on 09/16 per instrument maintenance supervisor. PES: Altered nutrition related lab values r/t current/chronic medical condition aeb elev. LFTs, hypocalcemia and mod hypoalbuminemia Will continue to monitor PO intake, skin status, pertinent labs and weight trend. F/u in 3-5 days Rec.: 1.) Continue close supervision with meals. 2.) Refer to RD for further nutrition educ. and weight monitoring upon discharge. 3.) Continue current plan of care.
[2018-09-17 13:00] VITALS: BP 111/68
[2018-09-17] MEDS ORDERED: SACC250C PO (14:39)
[2018-09-17] MEDS ORDERED: DOXY-216 PO (14:39)
[2018-09-17 15:12] VITALS: BP 111/68
--- NOTE | 2018-09-17 16:06 | NUR ---
MRSA SENT TO THE LAB PRIOR D/C.
--- NOTE | 2018-09-17 16:09 | NUR ---
Discharge instructions given as ordered. Encourage to follow up with PMD in [place] as instructed. All questions and concerns addressed. Patient verbalized understanding. Medication reconciliation form completed and copy given to patient. IV removed with catheter intact, pressure dressing applied. Patient taken to vehicle via wheelchair with all personal belongings, accompanied by staff and family member. No distress noted at time of departure.
== END 2018-09-17 16:10 | disposition home or self-care (01) | DRG 871 ==
LOC: ER 16:00 → OVERFLOW 09-08 05:22 → WEST WING 09-08 09:37
PROVIDERS: ADMIT Nurse Practitioner Family; ATTEND Internal Medicine
PROC: 009U3ZZ Drainage of Spinal Canal, Percutaneous Approach (ICD-10-PCS; principal; 2018-09-07)
DX: A41.9 Sepsis, unspecified organism (principal); J96.00 Acute respiratory failure, unspecified whether with hypoxia or hypercapnia; J10.00 Influenza due to other identified influenza virus with unspecified type of pneumonia; E87.1 Hypo-osmolality and hyponatremia; J90 Pleural effusion, not elsewhere classified; J98.11 Atelectasis; E87.6 Hypokalemia; E66.9 Obesity, unspecified; D69.6 Thrombocytopenia, unspecified; M43.6 Torticollis; Z82.49 Family history of ischemic heart disease and other diseases of the circulatory system; Z83.3 Family history of diabetes mellitus; Z90.49 Acquired absence of other specified parts of digestive tract; Z68.25 Body mass index [BMI] 25.0-25.9, adult
CPT/HCPCS: 36415; 62270; 70450; 70486; 71045; 71046; 71250; 74177; 76705; 80048; 80053; 80076; 80202; 80307; 81001; 83605; 83735; 84439; 84443; 85007; 85025; 85027; 85048; 86710; 87040; 87045; 87070; 87081; 87177; 87205; 87278; 87493; 87804; 87899; 89051; 94640; 96361; 96365; 96375; A6257; C9113; G0378; J0696; J1885; J2405; J2543; J3490; J7060